=== PATIENT | female | born 2000 | race Caucasian/White ===

== ENCOUNTER 2018-02-01 13:59 | Emergency (ER) | payer OTHER ==
[~2018-02-01] VITALS: Ht 167.6 cm; Wt 77.1 kg
[~2018-02-01 13:59] MED LIST: IBUPROFEN600 MG PO; MUPIROCIN22 GM TOP; NUVARING VAGIN1 EACH VAGINAL; SULFAMETHOXAZO1 EAC1 PO
[2018-02-01] MEDS ORDERED: IBUPROFEN600 MG PO (16:12)
== END 2018-02-01 16:31 | disposition home or self-care (01) ==
LOC: ED 13:59
DX: M10.9 Gout, unspecified (principal); Z87.891 Personal history of nicotine dependence
CPT/HCPCS: 73630; 80053; 84550; 85025; 99283

== ENCOUNTER 2018-04-19 20:03 | Emergency (ER) | payer OTHER ==
[~2018-04-19] VITALS: Ht 167.6 cm; Wt 65.2 kg
--- OUTSIDE RECORDS SUMMARY | ~2018-04-19 | XMS | Clinical Summary ---
Demographics + + + | Address | [address] | | | [place] [address] | + + + | Home Phone | | + + + | Preferred Language | Unknown | + + + | Marital Status | Unknown | + + + | Spiritism Affiliation | Unknown | + + + | Race | Unknown | + + + | Ethnic Group | Unknown | + + + Author + + + | Author | [facility] | + + + | Organization | [facility] | + + + | Address | Unknown | + + + | Phone | Unavailable | + + + Support + + +---------+ + | Name | Relationship | Address | Phone | + + +---------+ + | Rica Kitchen | ECON | Unknown | | + + +---------+ + Care Team Providers + +------+ + | Care Benefits Consulting Analyst Name | Role | Phone | + +------+ + PP | Unavailable | + +------+ + Allergies No Known Allergies Current Medications + + +-------+---------+------+------+-------+ | Prescription | Sig. | Disp. | Refills | Star | End | Statu | | | | | | t | Date | s | | | | | | Date | | | + + +-------+---------+------+------+-------+ | Vit-Fe | Take 1 tablet by | | | | | Activ | | Fumarate-FA | mouth daily with | | | | | e | | ( | breakfast. | | | | | | | MULTIVITAMIN & | | | | | | | | MINERALS W IRON/FA) | | | | | | | | 27-0.8 MG TABS | | | | | | | | tablet | | | | | | | + + +-------+---------+------+------+-------+ | ondansetron | Take 4 mg by mouth 3 | | | | | Activ | | (ZOFRAN) 4 MG tablet | (three) times daily | | | | | e | | | as needed for | | | | | | | | Nausea. | | | | | | + + +-------+---------+------+------+-------+ Active Problems + + + + | Currently | Estimated Date of Delivery | Comments | + + + + | Yes | 05/11/2017 | | + + + + No additional problems on file Family History + + +------+ + | Medical History | Relation | Name | Comments | + + +------+ + | Diabetes type II | Father | | | + + +------+ + | Diabetes type II | Maternal | | | | | Grandfath | | | | | er | | | + + +------+ + | Heart disease | Maternal | | | | | Grandfath | | | | | er | | | + + +------+ + | Cancer | Maternal | | | | | Grandmoth | | | | | er | | | + + +------+ + + +------+--------+ + | Relation | Name | Status | Comments | + +------+--------+ + | Father | | | | + +------+--------+ + | Maternal Grandfather | | | | + +------+--------+ + | Maternal Grandmother | | | | + +------+--------+ + Social History + +-------+ +--------+ + | Tobacco Use | Types | Packs/Day | Years | Date | | | | | Used | | + +-------+ +--------+ + | Former Smoker | | | | Quit: 09/17/2016 | + +-------+ +--------+ + + + +---------+ + | Alcohol Use | Drinks/We | oz/Week | Comments | | | ek | | | + + +---------+ + | No | | | | + + +---------+ + + + + + | Currently | Estimated Date of Delivery | Comments | + + + + | Yes | 05/11/2017 | | + + + + + + + | Sex Assigned at | Date Recorded | | | | + + + | Not on file | | + + + Last Filed Vital Signs + + + + | Vital Sign | Reading | Time Taken | + + + + | Blood Pressure | 114/58 | 02/12/2017 8:02 AM PDT | + + + + | Pulse | 84 | 01/15/2017 7:59 AM PDT | + + + + | Temperature | - | - | + + + + | Respiratory Rate | - | - | + + + + | Oxygen Saturation | 99% | 01/15/2017 7:59 AM PDT | + + + + | Inhaled Oxygen | - | - | | Concentration | | | + + + + | Weight | 79.3 kg (174 lb 12.8 | 02/12/2017 8:02 AM PDT | | | oz) | | + + + + | Height | 167.6 cm (5' 6") | 01/15/2017 7:59 AM PDT | + + + + | Body Mass Index | 28.21 | 02/12/2017 8:02 AM PDT | + + + + Plan of Treatment + + + + + | Health Maintenance | Due Date | Last Done | Comments | + + + + + | Well Child Check | | | | | | 2 | | | + + + + + | Vaccine: | | | | | Dtap/Tdap/Td (1 - | 8 | | | | Tdap) | | | | + + + + + | Vaccine: Influenza | | | | | (#1) | 8 | | | + + + + + Results Not on filefrom Last 3 Months Insurance + +--------+ +------+-------+ + | Payer | Benefi | Subscriber | Type | Phone | Address | | | t Plan | ID | | | | | | / | | | | | | | Group | | | | | + +--------+ +------+-------+ + | MEDICAID | MEDICA | [id number] | | | [address] | | | ID | | | | [place] | | | [place] | | | | [phone] | + +--------+ +------+-------+ + + +--------+ +--------+ + + | Guarantor Name | Accoun | Relation to | Date | Phone | Billing Address | | | t Type | Patient | of | | | | | | | | | | + +--------+ +--------+ + + | MELISA KITCHEN | Person | Self [birth year] Home: | [address] | | | [place] | | 2000 | [phone] | [phone] [place] | | | [place] | | | [phone] | + +--------+ +--------+ + +
--- OUTSIDE RECORDS SUMMARY | ~2018-04-19 | XMS | Clinical Summary ---
Demographics + + + | Address | [address] | | | [place] [address] | + + + | Home Phone | | + + + | Preferred Language | Unknown | + + + | Marital Status | Unknown | + + + | Mormon Affiliation | Unknown | + + + | Race | Unknown | + + + | Ethnic Group | Unknown | + + + Author + + + | Author | [facility] | + + + | Organization [...] [facility] + +------+ + | Care Half Backer Name | Role | Phone | + [...] +------+-------+ + | MEDICAID | MEDICA | [id number] | | | [address] | | | ID | | | | [place] | | | [place] | | | | [phone] | + +--------+ +------+-------+ + + +--------+ +--------+ + + | Guarantor Name | Accoun | Relation to | Date | Phone | Billing Address | | | t Type | Patient | of | | | | | | | | | | + +--------+ +--------+ + + | MELISA KITCHEN | Person | Self [birth year] | Home: | [address] | | | [place] | | 2000 | [phone] | [address] | | | [place] | | | [phone] | + +--------+ +--------+ + +
== END 2018-04-20 00:20 | disposition home or self-care (01) ==
LOC: ED 20:03
DX: S00.83XA Contusion of other part of head, initial encounter (principal); S00.01XA Abrasion of scalp, initial encounter; F17.200 Nicotine dependence, unspecified, uncomplicated; Z91.038 Other insect allergy status; Z91.030 Bee allergy status; Z91.011 Allergy to milk products; Y04.2XXA Assault by strike against or bumped into by another person, initial encounter
CPT/HCPCS: 70110; 70450; 72040; 81001; 84703; 87088; 99284